=== PATIENT | male | born 1980 | race Hispanic/Latino ===

== ENCOUNTER 2017-11-29 15:01 | Emergency (ER) | payer MEDICAID, OTHER ==
[2017-11-29 15:12] VITALS: RESP 16; TEMP 98.3
--- NOTE | 2017-11-29 16:46 | RAD ---
Date of service: 11/29/2017 HISTORY: SOB, chest pain COMPARISON: None. Five TECHNIQUE: Chest PA and lateral FINDINGS: LUNGS: No active pulmonary disease. PLEURA: No significant pleural effusion identified. No pneumothorax apparent. CARDIOVASCULAR: Normal. OSSEOUS STRUCTURES: No significant abnormalities. VISUALIZED UPPER ABDOMEN: Normal. OTHER FINDINGS: None. IMPRESSION: No active disease.
--- NOTE | 2017-11-29 16:47 | ED PDOC ---
Upper Extremity Pain/Injury Time Seen by Provider: 11/29/17 15:35 Chief Complaint (Nursing): Chest Pain Chief Complaint (Provider): Back/Shoulder Pain History Per: Patient History/Exam Limitations: no limitations Onset/Duration Of Symptoms: Hrs (since 1pm) Current Symptoms Are (Timing): Still Present Additional Complaint(s): 37 year old male arrives to ED with complaints of right-sided shoulder pain radiating to chest and upper back since 1300 today. Patient states pain worsens with movement and changes in position. He further reports feeling shortness of breath in the last 2 hours, stating he "can't catch his breath" even if he takes a deep breath. Otherwise,(-)falls/trauma (-) Fever, (-) chills, (-) cough , (-) abdominal pain, (-) nausea, (-) diarrhea, (-) vomiting, (-) prolonged immobility, (-) family history of heart disease (-) leg pain or swelling, or (- ) recent travel. PMD: none provided Past Medical History Reviewed: Historical Data, Nursing Documentation, Vital Signs Vital Signs: Last Vital Signs Temp 98.3 F 11/29/17 15:10 Pulse 95 H 11/29/17 15:10 Resp 16 11/29/17 15:10 BP 134/92 H 11/29/17 15:10 Pulse Ox 96 11/29/17 15:10 - Medical History PMH: No Chronic Diseases - Surgical History Surgical History: No Surg Hx - Family History Family History: States: Unknown Family Hx - Social History Current smoker - smoking cessation education provided: Yes (2ppd) Alcohol: Social Drugs: Denies - Home Medications Home Medications: Ambulatory Orders Medication Instructions Recorded Cyclobenzaprine [Cyclobenzaprine 10 mg PO Q8 PRN #12 tab 11/29/17 HCl] Ibuprofen [Motrin Tab] 800 mg PO Q8 PRN #21 tab 11/29/17 - Allergies Allergies/Adverse Reactions: Allergies Allergy/AdvReac Type Severity Reaction Status Date / Time No Known Allergies Allergy Verified 11/29/17 15:10 Review of Systems ROS Statement: Except As Marked, All Systems Reviewed And Found Negative Constitutional: Negative for: Fever, Chills Cardiovascular: Positive for: Chest Pain (right-sided) Respiratory: Positive for: Shortness of Breath Gastrointestinal: Negative for: Nausea, Vomiting, Abdominal Pain, Diarrhea Musculoskeletal: Positive for: Shoulder Pain (right-sided), Back Pain (upper) Physical Exam - Reviewed Nursing Documentation Reviewed: Yes Vital Signs Reviewed: Yes - Physical Exam Comments: GENERAL APPEARANCE: Patient is awake, alert, oriented x 3, in no acute distress. Resting comfortably. (+) obese SKIN: Warm, dry; (-) cyanosis. EYES: (-) conjunctival pallor. ENMT: Mucous membranes moist. Airway patent, (-) stridor. NECK: Supple, FROM (-) tenderness, (-) stiffness, (-) lymphadenopathy. CHEST AND RESPIRATORY: (-) rales, (-) rhonchi, (-) wheezes; breath sounds equal bilaterally. Speaking in full sentences, respirations even and nonlabored. HEART AND CARDIOVASCULAR: (-) irregularity; (-) murmur ABDOMEN AND GI: Soft; (-) tenderness (-) distention (-) rebound(-) guarding BACK: (+) right-sided parathoracic tenderness, (+) mild spasm, (-) direct bony tenderness, (-) deformity. EXTREMITIES: (-) deformity. Distal pulses good bilaterally. Normal ROM of right shoulder with (+) pain on extension and abduction (+) tenderness to posterior right shoulder (-) erythema (-) effusion (-) deformity. NEURO AND PSYCH: Mental status as above. Intact sensation bilaterally. Normal strength in extension of the knees, plantar and dorsiflexion of the toes. Gait steady, speech clear. (-) facial asymmetry (-) focal deficit. - Laboratory Results Result Diagrams: 11/29/17 16:26 11/29/17 16:26 - ECG O2 Sat by Pulse Oximetry: 96 (RA) Pulse Ox Interpretation: Normal Medical Decision Making Medical Decision Making: Initial Impression: Acute back and shoulder pain; chest pain; shortness of breath Initial Plan: * IV access * EKG * CMP * Drug screen, urine * Lipase * Troponin I * CBC * D Dimer * PTT * PT * CXR * Flexeril 10mg PO * Toradol 30mg IM EKG: NSR@91bpm (-) ST elevation, QTc 437 Time: 1644 --CXR FINDINGS: LUNGS: No active pulmonary disease. PLEURA: No significant pleural effusion identified. No pneumothorax apparent. CARDIOVASCULAR: Normal. OSSEOUS STRUCTURES: No significant abnormalities. VISUALIZED UPPER ABDOMEN: Normal. OTHER FINDINGS: None. IMPRESSION: No active disease. 1730 Labs reviewed. H&H stable. 0 Utox unremarkable. D-dimer 72. Troponin <0.01 On re-evaluation, patient states pain has improved greatly however still reports he feels like he cannot take a deep breath. Duoneb 3mg INH x1 ordered. 1840 Repeat HR: 75 Repeat BP: 125/80 Repeat O2: 100% on RA On re-evaluation, patient reports resolution of symptoms. Respirations even and nonlabored. On exam, patient remains AAOx3, in no acute distress. Lungs clear to auscultation, cardiac RRR, abdomen soft, non-tender, repeat neuro exam shows no focal findings. Vitals stable. Lab/Diagnostic results d/w the patient in great detail. Diagnosis of muscle spasm of shoulder/upper back, dyspnea d/w the patient. Based on history, exam and diagnostic results, plan will be for outpatient follow up. Patient instructed to follow-up with pmd / referral provided / the clinic in 1- 2 days without fail. Advised to take medication as prescribed. Return to the emergency room at any time for any new or worsening symptoms. Patient states he fully agrees with and understands discharge instructions. States that he agrees with the plan and disposition. Verbalized and repeated discharge instructions and plan. I have given the patient opportunity to ask any additional questions. Scribe Attestation: Documented by Roberta Kimbrough, acting as a scribe for Mahogany Power PA-C. Provider Scribe Attestation: All medical record entries made by the Scribe were at my direction and personally dictated by me. I have reviewed the chart and agree that the record accurately reflects my personal performance of the history, physical exam, medical decision making, and the department course for this patient. I have also personally directed, reviewed, and agree with the discharge instructions and disposition. Disposition - Clinical Impression Clinical Impression: Muscle spasm of right shoulder, Upper back pain on right side, Dyspnea - Patient ED Disposition Is Patient to be Admitted: No Counseled Patient/Family Regarding: Studies Performed, Diagnosis, Need For Followup, Rx Given, Smoking Cessation - Disposition Referrals: [facility] [Outside] Disposition: Routine/Home Disposition Time: 18:41 Condition: STABLE Additional Instructions: FOLLOW UP WITH CLINIC IN 1-2 DAYS WITHOUT FAIL. RETURN TO ED WITH ANY NEW OR WORSENING SYMPTOMS. Prescriptions: Cyclobenzaprine [Cyclobenzaprine HCl] 10 mg PO Q8 PRN #12 tab PRN Reason: Muscle Spasm Ibuprofen [Motrin Tab] 800 mg PO Q8 PRN #21 tab PRN Reason: Pain, Moderate (4-7) Instructions: Upper Back Pain (DC), Muscle Spasms (DC), Shortness of Breath ( Dyspnea) Forms: [facility] (Romanian) Print Language: CHADIAN - POA Present On Arrival: None Results - Lab Results Lab Results: 11/29/17 11/29/17 11/29/17 17:39 16:26 16:26 WBC RBC Hgb Hct MCV MCH MCHC RDW Plt Count MPV Neut % (Auto) Lymph % (Auto) Robeson % (Auto) Eos % (Auto) Baso % (Auto) Neut # (Auto) Lymph # (Auto) Robeson # (Auto) Eos # (Auto) Baso # (Auto) PT 12.7 INR 1.1 APTT 33.2 D-Dimer, Quantitative 72 Sodium 145 Potassium 4.1 Chloride 108 H Carbon Dioxide 27 Anion Gap 14 BUN 13 Creatinine 0.8 Est GFR ( Amer) > 60 Est GFR (Non-Af Amer) > 60 Random Glucose 102 Calcium 9.4 Total Bilirubin 0.5 AST 27 ALT 36 Alkaline Phosphatase 76 Troponin I < 0.0120 Total Protein 7.6 Albumin 4.1 Globulin 3.6 Albumin/Globulin Ratio 1.1 Lipase 54 Urine Opiates Screen Negative Urine Methadone Screen Negative Ur Barbiturates Screen Negative Ur Phencyclidine Scrn Negative Ur Amphetamines Screen Negative U Benzodiazepines Scrn Negative U Oth Cocaine Metabols Negative U Cannabinoids Screen Negative 11/29/17 16:26 WBC 14.9 H RBC 5.43 Hgb 15.4 Hct 46.4 MCV 85.4 MCH 28.4 MCHC 33.2 RDW 14.0 Plt Count 276 MPV 8.8 Neut % (Auto) 72.8 Lymph % (Auto) 17.5 L Robeson % (Auto) 6.5 Eos % (Auto) 2.5 Baso % (Auto) 0.7 Neut # (Auto) 10.9 H Lymph # (Auto) 2.6 Robeson # (Auto) 1.0 H Eos # (Auto) 0.4 Baso # (Auto) 0.1 PT INR APTT D-Dimer, Quantitative Sodium Potassium Chloride Carbon Dioxide Anion Gap BUN Creatinine Est GFR ( Amer) Est GFR (Non-Af Amer) Random Glucose Calcium Total Bilirubin AST ALT Alkaline Phosphatase Troponin I Total Protein Albumin Globulin Albumin/Globulin Ratio Lipase Urine Opiates Screen Urine Methadone Screen Ur Barbiturates Screen Ur Phencyclidine Scrn Ur Amphetamines Screen U Benzodiazepines Scrn U Oth Cocaine Metabols U Cannabinoids Screen
[2017-11-29 16:49] LABS: BASO # 0.1 K/uL (0.0-0.2); BASO % 0.7 % (0.0-2.0); EOS # 0.4 K/uL (0.0-0.7); EOS % 2.5 % (0.0-4.0); HEMOGLOBIN 15.4 g/dL (12.0-18.0); LYMPH # 2.6 K/uL (1.0-4.3); LYMPH % 17.5 % (20.0-40.0); MEAN CELL VOLUME 85.4 fl (80.0-94.0); MEAN CORPUSCULAR HEMOGLOBIN 28.4 pg (27.0-31.0); MEAN CORPUSCULAR HGB CONC 33.2 g/dL (33.0-37.0); MEAN PLATELET VOLUME 8.8 fl (7.2-11.7); MONO % 6.5 % (0.0-10.0); NEUT # 10.9 K/uL (1.8-7.0); NEUT % 72.8 % (50.0-75.0); NRBC % 0.1 % (0.0-0.0); RBC 5.43 Mil/uL (4.40-5.90); WHITE BLOOD COUNT 14.9 K/uL (4.8-10.8)
[2017-11-29 16:59] LABS: ALB/GLOB RATIO 1.1 (1.0-2.1); ALBUMIN 4.1 g/dL (3.5-5.0); ALT/SGPT 36 U/L (21-72); AST/SGOT 27 U/L (17-59); BLOOD UREA NITROGEN 13 mg/dl (9-20); CALCIUM 9.4 mg/dL (8.4-10.2); GFR NON-AFRICAN AMERICAN > 60; LIPASE 54 U/L (23-300)
[2017-11-29 17:07] LABS: INR 1.1 (0.9-1.2); PARTIAL THROMBOPLASTIN TIME 33.2 Seconds (25.6-37.1); PROTHROMBIN TIME 12.7 Seconds (9.8-13.1)
[2017-11-29 18:03] LABS: BARBITURATES, UR NEGATIVE (NEGATIVE); BENZODIAZEPINES, UR NEGATIVE (NEGATIVE); OPIATES, UR NEGATIVE (NEGATIVE); PHENCYCLIDINE, UR NEGATIVE (NEGATIVE)
[2017-11-29] MEDS ORDERED: Albuterol-Ipratrop 3 mg / 0.5 (3 ml) UD INH STA (18:10)
[2017-11-29] MEDS ORDERED: Albuterol-Ipratrop 3 mg / 0.5 (3 ml) UD ONE (18:14)
[2017-11-29 19:00] VITALS: BP 125/80; PULSE 75
--- NOTE | 2017-11-30 15:10 | CARD ---
APPROVED REPORT Date of service: 11/29/2017 EKG Measurement Heart [id number] <Conclusion> Normal sinus rhythm Normal ECG
[2017-12-03 19:37] VITALS: O2SAT 96
== END 2017-11-29 19:01 | disposition home or self-care (01) ==
LOC: H.ER 15:01
DX: M62.838 Other muscle spasm (principal); M54.9 Dorsalgia, unspecified; R06.00 Dyspnea, unspecified; F17.200 Nicotine dependence, unspecified, uncomplicated
CPT/HCPCS: 71046; 80053; 80324; 80345; 80346; 80349; 80353; 80358; 80361; 83690; 83992; 84484; 85025; 85378; 85610; 85730; 93005; 96372; 99283; J1885

== ENCOUNTER 2018-04-12 14:57 | Emergency (ER) | payer MEDICAID ==
[2018-04-12 15:28] VITALS: TEMP 98.4
--- NOTE | 2018-04-12 16:17 | ED PDOC ---
HPI: Eye Injury/Pain Time Seen by Provider: 04/12/18 15:51 Chief Complaint (Nursing): Eye Problem Chief Complaint (Provider): Eye Problem History Per: Patient History/Exam Limitations: no limitations Onset/Duration Of Symptoms: Days (x7 months) Additional Complaint(s): 38 y/o male presents to ED complaining of bilateral eye irritation on and off for the past x7 months. Patient states he came in today because his girlfriend works here and told him to come. Patient denies any change in symptoms prompting today's visit. Patient also reports that his girlfriend also noticed that when he sleeps his eyelids invert; patient provided picture of inverted eyelids while sleeping. Denies any change in vision. Past Medical History Reviewed: Historical Data, Nursing Documentation, Vital Signs Vital Signs: Last Vital Signs Temp 98.4 F 04/12/18 15:27 Pulse 89 04/12/18 15:27 Resp 16 04/12/18 15:27 BP 138/91 H 04/12/18 15:27 Pulse Ox 96 04/12/18 15:27 - Medical History PMH: No Chronic Diseases - Surgical History Surgical History: No Surg Hx - Family History Family History: States: Unknown Family Hx - Home Medications Home Medications: Ambulatory Orders Medication Instructions Recorded Cyclobenzaprine [Cyclobenzaprine 10 mg PO Q8 PRN #12 tab 11/29/17 HCl] Ibuprofen [Motrin Tab] 800 mg PO Q8 PRN #21 tab 11/29/17 Gentamicin 0.1% 0.1 / TP BID #1 tube 04/12/18 - Allergies Allergies/Adverse Reactions: Allergies Allergy/AdvReac Type Severity Reaction Status Date / Time No Known Allergies Allergy Verified 11/29/17 15:10 Review of Systems ROS Statement: Except As Marked, All Systems Reviewed And Found Negative Eyes: Positive for: Pain. Negative for: Vision Change Physical Exam - Reviewed Nursing Documentation Reviewed: Yes Vital Signs Reviewed: Yes - Physical Exam Appears: Positive for: Non-toxic, No Acute Distress Head Exam: Positive for: ATRAUMATIC, NORMOCEPHALIC Skin: Positive for: Normal Color, Warm, DRY Eye Exam: Positive for: PERRL, Conjunctival injection (mild), Scleral icterus (mild scleral injection) Neck: Positive for: Normal, Painless ROM Cardiovascular/Chest: Positive for: Regular Rate, Rhythm. Negative for: Murmur, Bradycardia, Tachycardia Respiratory: Positive for: Normal Breath Sounds. Negative for: Respiratory Distress Extremity: Positive for: Normal ROM. Negative for: Pedal Edema, Deformity Neurologic/Psych: Positive for: Alert, Oriented. Negative for: Motor/Sensory Deficits - ECG O2 Sat by Pulse Oximetry: 96 (RA) Pulse Ox Interpretation: Normal Medical Decision Making Medical Decision Making: Time: 15:51 Initial Impression: bilateral eye pain Initial Plan: * Patient advised to follow up with eye doctor. Scribe Attestation: Documented by Link Llanes, acting as a scribe for Lorraine Romero PA-C. Provider Scribe Attestation: All medical record entries made by the Scribe were at my direction and personally dictated by me. I have reviewed the chart and agree that the record accurately reflects my personal performance of the history, physical exam, medical decision making, and the department course for this patient. I have also personally directed, reviewed, and agree with the discharge instructions and disposition. 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
[2018-04-12 17:02] VITALS: BP 131/87; PULSE 78; RESP 15; O2SAT 99
--- NOTE | 2018-04-13 10:21 | ED PDOC ---
ED Additional Note - Date & Time of Evaluation Date of Evaluation: 04/13/18 Time of Evaluation: 10:15 - Physician Additional Note Physician Additional Note: Called by Kristen stating that prescription for Gentamicin written for 0.1% but the ophthalmic solution is 0.3% and not available. Changed to Erythromycin ophthalmic ointment.
== END 2018-04-12 17:01 | disposition home or self-care (01) ==
LOC: H.ER 14:57
DX: H02.89 Other specified disorders of eyelid (principal)